=== PATIENT | female | born 1995 | race Caucasian/White ===

== ENCOUNTER 2017-11-12 17:29 | Emergency (ER) | payer BC ==
--- NOTE | 2017-11-12 20:28 | RAD ---
INDICATION: Constipation COMPARISON: None TECHNIQUE: Erect and supine views of the abdomen are submitted. FINDINGS: Bones: There are no acute bony findings. There is a prominent S type scoliotic deformity Soft tissues: The soft tissues appear normal. The psoas margins are sharp. Bowel gas pattern: Normal Calcifications: There are no abnormal calcifications. Other: None IMPRESSION: SCOLIOSIS. NO ACUTE FINDINGS.
[2017-11-12 21:12] VITALS: BP 108/70
--- NOTE | 2017-11-12 22:56 | ED ---
Abdominal Pain/Female - HPI Summary HPI Summary: Patient is an otherwise healthy 22-year-old female presenting to the ED with a chief complaint of diffuse bloating and intermittent abdominal pain which is been present for approximately one month. Denies any constipation or diarrhea. Denies any nausea or vomiting. She has tried MiraLAX with a mild amount of relief. She denies any pain currently. Pain moves about and does not settle in any specific quadrant. Denies any epigastric pain and burping. Continues to pass gas. Denies any abdominal surgeries and does not take any medication. She states she has an appointment with her PCP in 2 days. Symptoms are sharp and crampy, aggravated by nothing and relieved with nothing. - History of Current Complaint Chief Complaint: EDAbdPain Stated Complaint: ABD PAIN Time Seen by Provider: 11/12/17 19:51 Hx Obtained From: Patient ?: No Onset/Duration: Lasting Weeks Timing: Constant Severity Initially: Mild Severity Currently: None Pain Intensity: 4 Pain Scale Used: 0-10 Numeric Location: Diffuse Radiates: No Character: Sharp Aggravating Factor(s): Nothing Alleviating Factor(s): Nothing Associated Signs and Symptoms: Positive: Negative - Risk Factors Ectopic Risk Factor: Negative Ovarian Torsion Risk Factor: Negative Allergies/Adverse Reactions: Allergies Allergy/AdvReac Type Severity Reaction Status Date / Time Penicillins Allergy Severe Hives Verified 11/12/17 17:46 PMH/Surg Hx/FS Hx/Imm Hx Previously Healthy: Yes Infectious Disease History: No Infectious Disease History: Denies: Traveled Outside the [place] in Last 30 Days - Social History Occupation: Unemployed, Student Lives: Dormitory/Roommates Alcohol Use: Rare Hx Substance Use: No Substance Use Type: Reports: None Hx Tobacco Use: No Smoking Status (MU): Never Smoked Tobacco Review of Systems Constitutional: Negative Negative: Fever, Chills, Fatigue, Skin Diaphoresis Eyes: Negative Cardiovascular: Negative Positive: Abdominal Pain, Nausea Genitourinary: Negative Positive: no symptoms reported, see HPI Musculoskeletal: Negative Neurological: Negative All Other Systems Reviewed And Are Negative: Yes Physical Exam Triage Information Reviewed: Yes Vital Signs On Initial Exam: Initial Vitals Temp Pulse Resp BP Pulse Ox 98.7 F 61 16 125/74 99 11/12/17 17:35 11/12/17 17:35 11/12/17 17:35 03/04/18 17:35 11/12/17 17:35 Vital Signs Reviewed: Yes Appearance: Positive: Well-Appearing, Well-Nourished Skin: Positive: Warm, Skin Color Reflects Adequate Perfusion Head/Face: Positive: Normal Head/Face Inspection Eyes: Positive: EOMI, ADALBERTO, Conjunctiva Clear Neck: Positive: Supple, No Lymphadenopathy Respiratory/Lung Sounds: Positive: Clear to Auscultation, Breath Sounds Present Cardiovascular: Positive: Normal, RRR, Pulses are Symmetrical in both Upper and Lower Extremities Abdomen Description: Positive: Nontender, Soft. Negative: Distended, Guarding Musculoskeletal: Positive: Normal, Strength/ROM Intact Neurological: Positive: Speech Normal Psychiatric: Positive: Normal, Affect/Mood Appropriate Diagnostics - Vital Signs Vital Signs Temp Pulse Resp BP Pulse Ox 11/12/17 21:11 98 F 75 14 108/70 100 11/12/17 17:35 98.7 F 61 16 125/74 99 - Laboratory Lab Statement: Any lab studies that have been ordered have been reviewed, and results considered in the medical decision making process. Abdominal Pain Fem Course/Dx - Course Course Of Treatment: During the course of treatment, the patient is evaluated for diffuse abdominal pain. Pain is most notably over the upper 2 quadrants, but moves around. Denies any pain currently. States she has not had normal bowel movements for approximately 1 month, but has been having bowel movements the last 2 days but still wanted to get checked out. She thinks she is constipated and has taken MiraLAX several days ago with a mild amount of relief. But symptoms returned today. Denies any nausea, vomiting, diarrhea. Denies any travel or eating anything abnormal. Denies any diagnoses, fever, sweats, chills. Abdominal x-ray obtained to assess for constipation. This was negative for any findings other than scoliosis. I discussed with the patient the results. She is to follow-up with her PCP in 2 days and I have also given her a GI consult. She is to use this if symptoms continue as I am unable to identify the exact cause of her intermittent diffuse painful abdominal symptoms. Due to the presentation of her symptoms, I am not concerned with a appendicitis, ovarian pathology, obstruction, or other emergent findings. - Diagnoses Provider Diagnoses: Diffuse abdominal pain Discharge - Discharge Plan Condition: Stable Disposition: HOME Patient Education Materials: Simethicone (By mouth), Constipation (ED) Referrals: Nick Richards MD [Medical Doctor] - [facility] [Primary Care Provider] - Additional Instructions: Please follow-up with doctor Susie Use MiraLAX 1 tonight Gas-X or simethicone may also help with the bloating symptoms You may also take [id number] probiotics for relief
== END 2017-11-12 21:11 | disposition home or self-care (01) ==
LOC: ED 17:29
DX: R10.9 Unspecified abdominal pain (principal); R11.0 Nausea
CPT/HCPCS: 74019; 99282